=== PATIENT | female | born 1960 | race Caucasian/White ===

== ENCOUNTER → 2016-10-22 | Outpatient (CLI) | payer OTHER ==
[~2016-10-22] MED LIST: LEVOXYL125 MC1 PO; LEXAPRO PO; LIPITOR40 MG PO; OMEPRAZOLE40 MG PO
--- NOTE | ~2016-10-22 | US98 ---
[facility] A Service of [facility] & [facility] RADIOLOGY TEXT RESULTS PATIENT: MITALI PAUL LOCATION: SGUS : 60 UNIT #: [id number] AGE: [address]: Va Mosley APRN SEX: F ORDER DR: [id number] [address] [address] [id number] O MR#: [id number] Acc #: [id number] NAME: MITALI PAUL : 1960 SEX: F STUDY DATE/TIME: 10/22/2016 8:34 UNIT: SG ROOM: STUDY DESCRIPTION: US Pelvic Non-OB Complete Attending Physician: Va Mosley A.P.R.N. Referring Physician: Va Mosley A.P.R.N. Ordering Physician: Va Mosley A.P.R.N. Primary Care Physician: Oralia Gilliland M.D. MEDICAL IMAGING REPORT This report is preliminary unless electronic signature is present. EXAM Transabdominal and transvaginal pelvic ultrasound, 10/22/2016 HISTORY Postmenopausal bleeding for 4 weeks. Patient began menopause in 2014. FINDINGS Transabdominal and transvaginal pelvic ultrasound was performed. Endovaginal ultrasound was performed for attempted better visualization of the adnexal structures. The bladder is normal in appearance. The uterus measures 5.9 cm craniocaudal by 2.8 cm AP by 4.6 cm transverse. Nabothian cysts are seen in the cervix. The endometrial stripe was poorly visualized, severely limiting the examination. Additionally, the ovaries were not identified on either transabdominal or transvaginal portions of the examination due to excessive bowel gas. No adnexal mass was seen and there is no free fluid in the pelvis. IMPRESSION Examination is limited as the endometrial stripe was poorly visualized. Additionally, the ovaries were not identified on either transabdominal or transvaginal portions of the examination. No adnexal mass was seen. There is no free fluid in the pelvis. Dictated by... Ridge Ma M.D. THIS IS AN ELECTRONICALLY VERIFIED REPORT Ridge Ma M.D. at 10/22/2016 5:34 PM KRT/psc TD: 10/22/2016 16:23 [facility] A Service of [facility] & [facility] RADIOLOGY TEXT RESULTS PATIENT: MITALI PAUL LOCATION: [facility] #: [id number] : 60 UNIT #: [id number] AGE: [address]: Va Mosley APRN SEX: F ORDER DR: BONITA #: [id number] MEDICAL IMAGING REPORT Page 1 of 1
== END | disposition home or self-care (01) ==
LOC: SGUS 08:39
DX: N95.0 Postmenopausal bleeding (principal)
CPT/HCPCS: 76830; 76856